=== PATIENT | female | born 1985 | race African-American/Black ===

== ENCOUNTER 2018-06-19 22:03 | Emergency (ER) | payer OTHER ==
[2018-06-19] MEDS ORDERED: Orphenadrine Citrate 60 MG/2 ML VIAL ONE (23:14)
[2018-06-19] MEDS ORDERED: Ketorolac Tromethamine 60 MG/2 ML VIAL ONE (23:14)
--- NOTE | 2018-06-19 23:42 | CT ---
CT CERVICAL SPINE: HISTORY: Arm and leg numbness and tingling for three days. TECHNIQUE: Axial images are obtained with coronal and sagittal reconstructions. FINDINGS: CT images of the cervical spine demonstrate disk space height loss with anterior and posterior osteop hytes at C5-C6 and C6-C7. This is compatible with changes of spondylosis. The central canal may hav e some central stenosis at C5-C6 and C6-C7, Correlate with MRI. The neural foramen are patent. No evidence of acute cervical spine fracture is seen. The patient has a right subclavian Mediport catheter. No definite evidence of significant lymphadenopathy is seen. The thyroid is unremarkable. IMPRESSION: C5-C6 and C6-C7 changes of spondylosis. POS: [facility]
== END 2018-06-20 00:12 | disposition home or self-care (01) ==
LOC: MADERS 22:03
DX: M48.02 Spinal stenosis, cervical region (principal); R20.0 Anesthesia of skin; F17.210 Nicotine dependence, cigarettes, uncomplicated
CPT/HCPCS: 72125; 96372; J1885; J2360

== ENCOUNTER 2018-06-23 09:59 | Emergency (ER) | payer OTHER ==
[2018-06-23] MEDS ORDERED: diphenhydrAMINE 50 MG/ML VIAL ONE (10:52)
[2018-06-23] MEDS ORDERED: Ondansetron PF 4 MG/2 ML Vial ONE (10:52)
[2018-06-23] MEDS ORDERED: Prochlorperazine 10 MG/2 ML VIAL ONE (10:52)
[2018-06-23] MEDS ORDERED: Ketorolac Tromethamine 30 MG/ML VIAL ONE (11:23)
--- NOTE | 2018-06-23 11:37 | CT ---
BRAIN CT WITHOUT IV CONTRAST: Date: 06/23/18 HISTORY: 33-year-old female with history of headache and dizziness for 1 week without trauma. COMPARISON: 04/24/18 and 06/21/17. FINDINGS: Small right-sided skull defect at the site of prior ventriculostomy tube. There is no focal mass or m idline shift. No intra or extra-axial hemorrhage. There is some motion artifact. There are fairly ext ensive diffuse white matter changes bilaterally, particularly in the centrum semiovale region and sub cortical regions, with little change in appearance when compared to the 04/24/18 study, but definitel y new or considerably progressive when compared to an 06/21/17 study. This is a nonspecific finding. This does not represent significant acute cerebral edema. IMPRESSION: Diffuse abnormal nonspecific white matter hypointensity changes, particularly in the centrum semioval e and subcortical regions bilaterally, showing little change from 04/24/18, but new when compared to the 06/21/17 study. Consider follow-up nonemergent brain MRI with and without IV contrast for further assessment of this. No evidence of mass or acute hemorrhage. POS: [facility]
[2018-06-23] MEDS ORDERED: Sodium Chloride 0.9% 1,000 ML BAG ONE (23:27)
== END 2018-06-23 12:45 | disposition home or self-care (01) ==
LOC: MADERS 09:59
DX: R51 Headache (principal); I10 Essential (primary) hypertension; F17.210 Nicotine dependence, cigarettes, uncomplicated
CPT/HCPCS: 70450; 96361; 96374; 96375; J0780; J1200; J1885; J2405; J7050

== ENCOUNTER 2018-06-27 11:54 | Emergency (ER) | payer OTHER | END 2018-06-27 12:27 | disposition home or self-care (01) | LOC: MADERS 11:54 | DX: R51 Headache (principal); R11.2 Nausea with vomiting, unspecified; I10 Essential (primary) hypertension; F17.210 Nicotine dependence, cigarettes, uncomplicated | CPT/HCPCS: 99283 ==